=== PATIENT | male | born 1970 | race Caucasian/White ===

== ENCOUNTER 2018-09-04 14:56 | Outpatient (CLI) | payer OTHER ==
--- NOTE | 2018-09-04 16:20 | RAD ---
TWO VIEWS CHEST: Comparison: None. History: Pneumonia. Right low back pain. FINDINGS: Two views of the chest show normal sized cardiomediastinal silhouette. There is no evidence of consol idation, mass, or pleural effusion. The bones are unremarkable. IMPRESSION: No evidence of acute cardiopulmonary disease. POS: CET
== END 2018-09-04 14:57 | disposition home or self-care (01) ==
LOC: BICRAD 14:56
PROVIDERS: ATTEND Family Medicine
DX: J18.9 Pneumonia, unspecified organism (principal); M54.5 Low back pain
CPT/HCPCS: 71046

== ENCOUNTER 2020-02-17 15:08 | Outpatient (CLI) | payer OTHER ==
--- NOTE | 2020-02-17 15:50 | ULT ---
Venous duplex sonogram right lower extremity HISTORY: Right leg pain and edema. FINDINGS: The right common femoral vein and greater saphenous junction were evaluated along with the femoral, deep femoral, popliteal, and posterior tibial veins. There is good color and spectral Doppler flow, compression, and augmentation. IMPRESSION : No sonographic evidence of DVT within the right lower extremity.
== END 2020-02-17 15:09 | disposition home or self-care (01) ==
LOC: SCSULT 15:08
PROVIDERS: ATTEND Family Medicine
DX: M79.661 Pain in right lower leg (principal)